=== PATIENT | male | born 1970 | race Hispanic/Latino ===

== ENCOUNTER 2017-09-16 10:02 | Emergency (ER) | payer BC ==
[~2017-09-16] VITALS: Ht 175.3 cm; Wt 113.4 kg
[2017-09-16] MEDS ORDERED: ONDANSETRON HCL 4 MG ORAL DISINTEGRATING TAB PO ONE (10:30)
[2017-09-16] MEDS ORDERED: MORPHINE SULFATE 4 MG/ML SYR IV STA (10:30)
[2017-09-16] MEDS ORDERED: SODIUM CHLORIDE 0.9% 1000ML 1,000 ML IV STA (10:30)
[2017-09-16] MEDS ORDERED: MORPHINE SULFATE 2 MG/ML SYR ONE (10:44)
[2017-09-16 10:59] LABS: BASOPHILS % 0.4 % (0.0-1.0); EOSINOPHILS # (AUTO) 0.1 (0.0-0.4); EOSINOPHILS % 1.1 % (0.0-6.0); HEMATOCRIT 46.2 % (38.2-49.6); HEMOGLOBIN 16.4 g/dL (14.0-18.0); LYMPHOCYTES # (AUTO) 2.1 (1.0-3.2); LYMPHOCYTES % 26.3 % (18.0-39.1); MEAN CORPUSCULAR HEMOGLOBIN 31.1 pg (28-32); MEAN CORPUSCULAR HGB CONC 35.5 g/dL (31-35); MEAN CORPUSCULAR VOLUME 87.5 fL (81-99); MONOCYTES # (AUTO) 0.4 (0.2-0.8); NEUTROPHILS # (AUTO) 5.4 (2.1-6.9); NEUTROPHILS % 66.6 % (38.7-80.0); PLATELET COUNT 126 x10e3/uL (140-360); RED BLOOD COUNT 5.28 x10e6/uL (4.3-5.7); RED CELL DISTRIBUTION WIDTH 12.5 % (11.7-14.4)
[2017-09-16 11:14] LABS: ALANINE AMINOTRANSFERASE 140 IU/L (0-55); ALBUMIN 3.9 g/dL (3.5-5.0); ALBUMIN/GLOBULIN RATIO 1.2 (0.8-2.0); ALKALINE PHOSPHATASE 75 IU/L (40-150); AMYLASE 33 U/L (25-125); ANION GAP 12.8 mmol/L (8-16); BLOOD UREA NITROGEN 17 mg/dL (7-26); BUN/CREATININE RATIO 17 (6-25); CALCIUM 9.4 mg/dL (8.4-10.2); CARBON DIOXIDE 23 mmol/L (22-29); CHLORIDE 104 mmol/L (98-107); CREATININE, SERUM 0.98 mg/dL (0.72-1.25); EST GLOMERULAR FILTRATION RATE > 60 ML/MIN (60-); GLUCOSE 290 mg/dL (74-118); LIPASE 32 U/L (8-78); POTASSIUM 3.8 mmol/L (3.5-5.1); SODIUM 136 mmol/L (136-145)
[2017-09-16 11:20] LABS: CLARITY,URINE CLOUDY (CLEAR); COLOR,URINE AMBER (YELLOW); LEUKOCYTE ESTERASE ,URINE NEGATIVE (NEGATIVE); NITRITE,URINE NEGATIVE (NEGATIVE); PROTEIN,URINE DIPSTICK 2+ (NEGATIVE)
[2017-09-16 11:21] LABS: BILIRUBIN,URINE NEGATIVE (NEGATIVE); KETONES,URINE NEGATIVE (NEGATIVE); URINE UROBILINOGEN 0.2 mg/dL (0.2 - 1)
[2017-09-16 11:22] LABS: BACTERIA,URINE RARE /HPF; EPITHELIAL CELLS,URINE FEW /LPF; RBC,URINE 21-50 /HPF (0-5)
--- NOTE | 2017-09-16 11:29 | Diagnostic Imaging Report ---
PROCEDURE:US GALLBLADDER COMPARISON:None. INDICATIONS:Abdominal Pain TECHNIQUE: Larsen-scale and color doppler transverse and longitudinal images of the right upper quadrant of the abdomen were obtained. FINDINGS: Liver: 18.4 cm in right mid-clavicular line. Increased echogenicity. No masses. Main portal vein: 1.3 cm, hepatopetal flow Gallbladder: No stones, sludge, wall thickening, or pericholecystic fluid. Common Bile Duct: 2.4 cm Sonographic Delacruz's sign: Negative Right kidney: 12.6 cm. Normal echogenicity. No solid masses or hydronephrosis. Pancreas: The visualized portions are unremarkable. Inferior vena cava: Patent Aorta: Within normal limits Ascites: None in the right upper quadrant of the abdomen. CONCLUSION: 1. Hepatomegaly with diffuse steatosis. No focal lesions. 2. No sonographic evidence of cholelithiasis or cholecystitis. Terry Tanner M.D. Dictated by: Terry Tanner M.D. on 09/16/2017 at 11:32 Electronically approved by: Terry Tanner M.D. on 09/16/2017 at 11:32
--- NOTE | 2017-09-16 13:10 | Diagnostic Imaging Report ---
PROCEDURE: CT ABDOMEN AND PELVIS WITH CONTRAST TECHNIQUE: The abdomen and pelvis were scanned utilizing a multidetector helical scanner from the diaphragm to the lesser trochanter after the IV administration of 100 cc of Isovue 370 and the oral administration of water. Coronal and sagittal multiplanar reformations were obtained. COMPARISON: None. INDICATIONS: RIGHT SIDE ABDOMINAL PAIN. NAUSEA FINDINGS: LOWER THORAX: Mild bilateral lower lobe dependent atelectasis. Linear subsegmental atelectasis in the lingula. HEPATOBILIARY: Diffuse hepatic steatosis. No focal lesions. No biliary ductal dilation. Gallbladder is unremarkable. SPLEEN: No splenomegaly. PANCREAS: No focal masses or ductal dilatation. ADRENALS: No adrenal nodules. KIDNEYS/URETERS: 6-7 mm calculus in the proximal left ureter (series 2, image 54 and coronal image 73), with mild periureteral stranding. No hydronephrosis or hydroureter. 2-3 mm nonobstructing calculus in the inferior pole of the right kidney (series 2, image 48). No other renal or ureteral calculi. No solid enhancing masses. PELVIC ORGANS/BLADDER: Bladder is unremarkable, without focal lesions or wall thickening. Prostate is unremarkable. PERITONEUM / RETROPERITONEUM: No free air or fluid. LYMPH NODES: No lymphadenopathy. VESSELS: Unremarkable. GI TRACT: No bowel dilation or evidence of obstruction. Appendix is well identified and normal in caliber. No pericolonic inflammatory changes. BONES AND SOFT TISSUES: No aggressive lytic lesion. Small fat-containing right inguinal hernia. IMPRESSION: 1. 6-7 mm calculus in the proximal left ureter with mild periureteral stranding. No hydronephrosis or hydroureter. 2. Nonobstructing 2-3 mm calculus in the inferior pole of the right kidney. No other renal or ureteral calculi. 3. Diffuse hepatic steatosis, without focal lesions. Terry Tanner M.D. Dictated by: Terry Tanner M.D. on 09/16/2017 at 13:13 Electronically approved by: Terry Tanner M.D. on 09/16/2017 at 13:13
[2017-09-16 14:04] VITALS: BP 112/73
== END 2017-09-16 14:05 | disposition home or self-care (01) ==
LOC: ER 10:02
DX: N20.1 Calculus of ureter (principal)
CPT/HCPCS: 36415; 74177; 76705; 80053; 81001; 82150; 83690; 85025; 87086; 99284; J2270; J7030